=== PATIENT | female | born 1965 | race Two or more races ===

== ENCOUNTER 2020-06-26 10:07 | Outpatient (REF) | payer OTHER, MEDICAID, SELFPAY ==
[2020-06-26 11:49] LABS: MANUAL DIFF FLAG NO
[2020-06-26 12:24] LABS: Eosinophils Absolute Auto 0.1 X10*3/uL (0.0-0.4); Eosinophils Percent Auto 1.6 % (0-4); Hematocrit 37.3 % (37-47); Hemoglobin 12.3 g/dl (12.0-16.0); Imm Gran Abs Auto 0.01 X10*3/uL (0.00-0.03); Imm Gran Pct Auto 0.3 % (0.0-0.4); Lymphocytes Absolute Auto 2.1 X10*3/uL (1.2-4.9); Lymphocytes Percent Auto 55.2 % (20-40); Mean Corpuscular Hemoglobin 30.3 pg (27.0-33.0); Mean Corpuscular Volume 91.9 fL (80-98); Mean Platelet Volume 9.7 fL (9.4-12.3); Monocytes Absolute Auto 0.2 X10*3/uL (0.1-1.2); Monocytes Percent Auto 5.8 % (2-11); Neutrophils Absolute Auto 1.4 X10*3/uL (2.0-8.3); Neutrophils Percent Auto 36.1 % (45-73); Platelet Count 305 X10*3/uL (160-400); Red Blood Count 4.06 X10*6/uL (4.20-5.50); Red Cell Distribution Width 12.8 % (11.0-16.0); White Blood Count 3.8 X10*3/uL (4.8-10.8)
[2020-06-26 12:33] LABS: Alanine Aminotransferase 18 U/L (0-31); Anion Gap 12 (12-20); Aspartate Amino Transferase 29 U/L (5-31); Blood Urea Nitrogen 9 mg/dL (9-16); Calcium 8.9 mg/dL (8.4-10.2); Carbon Dioxide 27 mmol/L (22-29); Chloride 107 mmol/L (96-108); Cholesterol 215 mg/dL; Estimated Glomerular Filt Rate > 60; Glucose Fasting 78 mg/dL (60-99); HDL Cholesterol 52 mg/dL; LDL Cholesterol Calculated 148 mg/dl; Potassium 4.4 mmol/l (3.3-5.1); Sodium 142 mmol/L (135-145); Triglycerides 78 mg/dL
[2020-06-26 12:56] LABS: Vitamin D 25-OH Total 45.1 ng/mL (>30)
[2020-07-07 18:37] LABS: HPV mRNA E6/E7 rflx Not Detected (Not Detected)
== END 2020-06-26 10:08 | disposition home or self-care (01) ==
LOC: HO.HMGCLDS 10:07
PROVIDERS: PCP Internal Medicine; Visit Provider Internal Medicine
DX: Z00.01 Encounter for general adult medical examination with abnormal findings (principal); I10 Essential (primary) hypertension; D72.819 Decreased white blood cell count, unspecified; Z12.4 Encounter for screening for malignant neoplasm of cervix
CPT/HCPCS: 36415; 80048; 80061; 82306; 84450; 84460; 85025; 87624; 87625; 88142

== ENCOUNTER 2020-09-20 14:05 | Outpatient (REF) | payer OTHER, SELFPAY ==
--- NOTE | ~2020-09-20 | MM_ITS ---
EXAMINATION: MM SCREENING DIGITAL BREAST TOMOSYNTHESIS, BILATERAL CLINICAL INFORMATION: Screening. Asymptomatic. The lifetime risk of breast cancer based on the Tyrer-Cuzick Model is 7.6%. COMPARISON: Mammography: September 15, 2019 and studies dating back to July 23, 2016 TECHNIQUE: Digital breast tomosynthesis is performed in both the craniocaudal and mediolateral oblique views along with computer-aided detection (CAD). Synthesized 2D images are generated from the tomosynthesis. FINDINGS: The breasts are heterogeneously dense, which may obscure small masses (ACR BI-RADS breast composition Category c). There are no significant masses, abnormal calcifications, or other abnormalities. Stable grouping of calcification seen anterior aspect of the left breast. MM/MM tomosynthesis screening BI IMPRESSION: There are no significant changes from prior study. ASSESSMENT: BI-RADS 2: Benign RECOMMENDATION: Routine annual mammography screening. This patient's information was entered into a reminder system with a target due date for their next mammogram.
== END 2020-09-20 14:06 | disposition home or self-care (01) ==
LOC: HO.MAMMO 14:05
PROVIDERS: PCP Internal Medicine; Visit Provider Internal Medicine
DX: Z12.31 Encounter for screening mammogram for malignant neoplasm of breast (principal)
CPT/HCPCS: 77063; 77067

== ENCOUNTER 2020-12-25 11:02 | Outpatient (REF) | payer OTHER, SELFPAY ==
[2020-12-25 14:51] LABS: Alanine Aminotransferase 16 U/L (0-31); Anion Gap 15 (12-20); Aspartate Amino Transferase 24 U/L (5-31); Blood Urea Nitrogen 10 mg/dL (9-16); Carbon Dioxide 23 mmol/L (22-29); Chloride 108 mmol/L (96-108); Cholesterol 191 mg/dL; Estimated Glomerular Filt Rate > 60; Glucose Fasting 76 mg/dL (60-99); HDL Cholesterol 48 mg/dL; LDL Cholesterol Calculated 126 mg/dl; Potassium 4.3 mmol/L (3.3-5.1); Sodium 142 mmol/L (135-145); Triglycerides 88 mg/dL
[2020-12-25 15:08] LABS: Vitamin D 25-OH Total 34.4 ng/mL (>30)
== END 2020-12-25 11:03 | disposition home or self-care (01) ==
LOC: HO.HMGCLDS 11:02
PROVIDERS: PCP Internal Medicine; Visit Provider Internal Medicine
DX: E78.5 Hyperlipidemia, unspecified (principal); I10 Essential (primary) hypertension; Z78.0 Asymptomatic menopausal state
CPT/HCPCS: 36415; 80048; 80061; 82306; 84450; 84460

== ENCOUNTER 2021-09-13 09:41 | Outpatient (REF) | payer OTHER, SELFPAY ==
[2021-09-13 10:16] LABS: COVID-19 Test Negative (Negative); IDNOW Serial# 16C4AD1C
== END 2021-09-13 09:42 | disposition home or self-care (01) ==
LOC: HO.LAB 09:41
PROVIDERS: PCP Internal Medicine; Visit Provider Internal Medicine
DX: Z20.822 Contact with and (suspected) exposure to COVID-19 (principal)
CPT/HCPCS: 87635; C9803

== ENCOUNTER 2021-09-23 11:58 | Outpatient (REF) | payer OTHER, SELFPAY ==
--- NOTE | ~2021-09-23 | MM_ITS ---
EXAMINATION: MM SCREENING DIGITAL BREAST TOMOSYNTHESIS, BILATERAL CLINICAL INFORMATION: Screening. Asymptomatic. The lifetime risk of breast cancer based on the Tyrer-Cuzick Model is 5%. COMPARISON: Mammography: 09/20/2020, 09/15/2019, 11/24/2018, 05/05/2018 TECHNIQUE: Digital breast tomosynthesis is performed in both the craniocaudal and mediolateral oblique views along with computer-aided detection (CAD). Synthesized 2D images are generated from the tomosynthesis. FINDINGS: The breasts are heterogeneously dense, which may obscure small masses (ACR BI-RADS breast composition Category c). Parenchymal pattern is similar to prior studies. There is no developing density or interval mass or architectural abnormality. No abnormal calcifications. There is biopsy clip marker again seen right breast mid upper outer quadrant. Some stable fine circular arranged calcifications are again noted 6:00 retroareolar left breast. The axilla and skin contours are unremarkable. No significant changes. MM/MM tomosynthesis screening BI IMPRESSION: No mammographic evidence of malignancy. ASSESSMENT: BI-RADS 2: Benign RECOMMENDATION: Routine annual mammography screening. This patient's information was entered into a reminder system with a target due date for their next mammogram.
== END 2021-09-23 11:59 | disposition home or self-care (01) ==
LOC: HO.MAMMO 11:58
PROVIDERS: PCP Internal Medicine; Visit Provider Internal Medicine
DX: Z12.31 Encounter for screening mammogram for malignant neoplasm of breast (principal)
CPT/HCPCS: 77063; 77067

== ENCOUNTER 2022-03-03 12:12 | Outpatient (REF) | payer OTHER, SELFPAY ==
[2022-03-03 13:15] LABS: COVID-19 Test Negative (Negative); IDNOW Serial# 55D5AD1C
== END 2022-03-03 12:13 | disposition home or self-care (01) ==
LOC: HO.LAB 12:12
PROVIDERS: Visit Provider Internal Medicine
DX: Z20.822 Contact with and (suspected) exposure to COVID-19 (principal)
CPT/HCPCS: 87635; C9803

== ENCOUNTER 2022-09-25 10:53 | Outpatient (REF) | payer OTHER, SELFPAY ==
--- NOTE | ~2022-09-25 | MM_ITS ---
EXAMINATION: MM SCREENING DIGITAL BREAST TOMOSYNTHESIS, BILATERAL CLINICAL INFORMATION: Screening. Asymptomatic. The lifetime risk of breast cancer based on the Tyrer-Cuzick Model is 4.5%. COMPARISON: Mammography: September 23, 2021 and studies dating back to July 23, 2016 TECHNIQUE: Digital breast tomosynthesis is performed in both the craniocaudal and mediolateral oblique views along with computer-aided detection (CAD). Synthesized 2D images are generated from the tomosynthesis. FINDINGS: The breasts are heterogeneously dense, which may obscure small masses (ACR BI-RADS breast composition Category c). There are no new significant masses, abnormal calcifications, or other abnormalities. MM/MM tomosynthesis screening BI IMPRESSION: No significant changes from prior exam. ASSESSMENT: BI-RADS 1: Negative RECOMMENDATION: Routine annual mammography screening. This patient's information was entered into a reminder system with a target due date for their next mammogram.
== END 2022-09-25 10:54 | disposition home or self-care (01) ==
LOC: HO.MAMMO 10:53
PROVIDERS: PCP Internal Medicine; Visit Provider Internal Medicine
DX: Z12.31 Encounter for screening mammogram for malignant neoplasm of breast (principal)
CPT/HCPCS: 77063; 77067

== ENCOUNTER 2022-12-29 08:14 | Outpatient (REF) | payer OTHER, SELFPAY ==
[2022-12-29 12:14] LABS: Alanine Aminotransferase 22 U/L (0-31); Anion Gap 13 (12-20); Aspartate Amino Transferase 29 U/L (5-31); Blood Urea Nitrogen 10 mg/dL (9-16); Calcium 9.1 mg/dL (8.4-10.2); Carbon Dioxide 28 mmol/L (22-29); Chloride 109 mmol/L (96-108); Cholesterol 197 mg/dL; Estimated Glomerular Filt Rate > 60; Glucose Fasting 92 mg/dL (60-99); HDL Cholesterol 54 mg/dL; LDL Cholesterol Calculated 130 mg/dl; Potassium 4.5 mmol/L (3.3-5.1); Sodium 145 mmol/L (135-145); Triglycerides 69 mg/dL; Vitamin D 25-OH Total 58.4 ng/mL (>30)
== END 2022-12-29 08:15 | disposition home or self-care (01) ==
LOC: HO.HMGCLDS 08:14
PROVIDERS: PCP Internal Medicine; Visit Provider Internal Medicine
DX: Z00.01 Encounter for general adult medical examination with abnormal findings (principal); E78.5 Hyperlipidemia, unspecified; I10 Essential (primary) hypertension
CPT/HCPCS: 36415; 80048; 80061; 82306; 84450; 84460

== ENCOUNTER 2023-08-28 07:56 | Outpatient (AMB) | payer OTHER, SELFPAY ==
--- NOTE | 2023-08-28 08:00 | A.OFFPC_ITS ---
Vital Signs 08/28/23 08:10 Height 5 ft 7 in Weight 147 lb BMI 23.0 BP 124/74 Blood Pressure Location Rt brachial Position Sitting Pulse 62 Pulse Source Pulse Oximeter Pulse Oximetry (%) 100 Oxygen Delivery Method Room Air Intake Visit Reasons: Annual PE Intake Note: Pt is here today for her PE: Last mammogram 09/25/22, papsmear 07/05/20 and colonoscopy 12/22/17: Pt is havng her papsmear today Allergies apple [APPLE] Allergy (Intermediate, Verified 08/28/23 08:21) RAW - THROAT RESTRICTION pear [PEAR] Allergy (Intermediate, Verified 08/28/23 08:21) RAW - THROAT RESTRICTION milk [MILK] Adverse Reaction (Intermediate, Verified 08/28/23 08:21) COWS MILK - NAUSEA&VOMITTING SEASONAL ALLERGIES Allergy (Mild, Uncoded 08/28/23 08:21) SNEEZING/CONGESTION Medication List - Last Reconciled 08/28/23 by Jodie Howard MD amlodipine 10 mg PO DAILY cholecalciferol (vitamin D3) 50 mcg PO DAILY hydrochlorothiazide 12.5 mg PO DAILY Tobacco use date assessed: 08/28/23 Dental Screening Dental Screen Date: 08/28/23 Did you have a dental visit in the last 12 months?: No Was dental information given to patient?: Yes HPI Annual PE HPI Details 57-year-old lady here today for physical exam. She has hypertension currently on amlodipine 10 mg and 12.5 mg of hydrochlorothiazide daily. Blood pressure is stable controlled on present treatment. She is now due for her cervical cancer screening, last done in 2019. No complaints at present time Up-to-date with her screening mammogram done last year, and up-to-date with her screening colonoscopy, done by Dr. Sinclair in 2017, due again in 2027. p-to-date with her screening mammogram done last year [facility] Medical History (Updated 08/28/23 @ 08:43 by Jodie Howard MD) Dyslipidemia Arthralgia of left hand Leukopenia Seasonal allergies Essential hypertension Surgical History History of colonoscopy Remove/insert IUD History of section Family History Father HTN (hypertension) Mother HTN (hypertension) Maternal Grandfather No problems noted. Maternal Grandmother No problems noted. Paternal Grandfather No problems noted. Paternal Grandmother No problems noted. Brother No problems noted. Brother No problems noted. Sister No problems noted. Son No problems noted. Son No problems noted. Maternal Aunt Breast cancer Social History Housing: House Alcohol intake: never Patient Tobacco Use Status: Never used Tobacco e-Cigarette/Vaping Use: Never Used Current occupational status: employed Cognitive needs: No Hearing needs: No Vision needs: Yes Questionnaire PHQ-9 Over the last 2 weeks, how often have you been bothered by any of the following problems? 1. Little interest or pleasure in doing things: not at all 2. Feeling down, depressed, or hopeless: not at all 3. Trouble falling or staying asleep, or sleeping too much: not at all 4. Feeling tired or having little energy: not at all 5. Poor appetite or overeating: not at all 6. Feeling bad about yourself - or that you are a failure or have let yourself or your family down: not at all 7. Trouble concentrating on things, such as reading the newspaper or watching television: not at all 8. Moving or speaking so slowly that other people could have noticed. Or the opposite - being so fidgety or restless that you have been moving around a lot more than usual: not at all 9. Thoughts that you would be better off or of hurting yourself in some way: not at all Total score: 0 Depression Screening Interpretation: Negative Depression Screening Done: Yes 18763 - PHQ-9 Billing: Yes Source: Developed by Drs. Maximiliano Ken, Shira Garcia, Howard Vernon and colleagues, with an educational rosamaria from [employer]. Thrive Questionnaire Date Thrive assessed: 08/28/23 I am a: Patient What is your living situation today?: I have a steady place to live Within the past 12 months, did the food you bought not last and you didn't have the money to get more?: Never true Within the past 12 months, did you worry whether your food would run out before you got money to buy more?: Never true Do you have trouble paying for medicines?: No Do you have trouble getting transportation to medical appointments?: No Do you have trouble paying your heating and electricity bill?: Yes ([place]) Do you have trouble taking care of your child, family member or friend?: No Do you have trouble with day-to-day activities such as bathing, preparing meals, shopping, managing finances, etc.?: No Are you currently unemployed and looking for a job?: Yes Are you interested in more education?: Yes Please select the resources that you would like help with: Utilities, Job sear ch/training and Education THRIVE Score: 1 AUDIT C Alcohol Use Questionnaire (AUDIT-C) 1. How often do you have a drink containing alcohol?: Monthly or less 2. How many drinks containing alcohol do you have on a typical day when you are drinking?: 1 or 2 3. How often do you have six or more drinks on one occasion?: Never Total Score: 1 LIU-7 AMB Questionnaire LIU-7 Date LIU - 7 assessed: 08/28/23 Feeling nervous, anxious, or on edge: 0 = Not at all Not being able to stop or control worryin = Not at all Worrying too much about different things: 0 = Not at all Trouble relaxin = Not at all Being so restless that it is hard to sit still: 0 = Not at all Becoming easily annoyed or irritable: 0 = Not at all Feeling afraid as if something awful might happen: 0 = Not at all Total LIU-7 score (0-4 normal; 5-9 mild; 10-14 moderate; 15-21 severe): 0 Source: Developed by Drs. Maximiliano Ken, Shira Garcia, Howard Vernon and colleagues, with an educational rosamaria from [employer]. LIU-7 Assessment Billing LIU-7 Assessment Tool: LIU-7 Assessment 40258 Review of Systems Const Denies body aches, Denies fatigue, Denies fever(s), Denies headache(s) and Denies weakness Eyes Details: Up-to-date with eye exam Denies change in vision, Denies eye discharge and Denies itchy eyes ENT Denies dizziness, Denies headache(s), Denies nasal congestion, Denies nasal discharge and Denies sore throat Card Denies chest pain, Denies lightheadedness, Denies palpitations and Denies dyspnea Resp Denies chest congestion, Denies cough, Denies dyspnea and Denies wheezing GI Denies abdominal pain, Denies change in bowel habits and Denies heartburn Details: Denies any incontinence or abnormal vaginal discharge. Denies urinary frequency, Denies difficulty voiding, Denies genital pruritis, D enies hot flashes, Denies dysuria and Denies urinary urgency Musc Denies back pain, Denies joint swelling and Denies limited range of motion Skin/Breast Denies lesions and Denies rash Neuro Denies dizziness, Denies headache(s), Denies memory loss and Denies weakness Psych Denies abnormal sleep pattern, Denies anxiety, Denies change in appetite, Denies depression, Denies anhedonia and Denies memory loss Endo Denies fatigue, Denies polydipsia, Denies polyuria and Denies palpitations Chuck/Lymph Denies easy bruising Aller/Immun Denies itchy eyes, Denies seasonal rhinorrhea and Denies wheezing Physical exam (Primary Care) Vital Signs: Last Vital Signs Pulse 62 08/28/23 08:10 BP 124/74 08/28/23 08:10 Pulse Ox 100 08/28/23 08:10 Oxygen Delivery Method Room Air 08/28/23 08:10 BMI result Body Mass Index 23.0 Tobacco/Smoking Status: Tobacco use Status Tobacco use date assessed 08/28/23 08/28/23 08:01 Patient Tobacco Use Status Never used Tobacco 08/28/23 08:01 e-Cigarette/Vaping Use Never Used 08/28/23 08:01 Depression Screening Interpretation: Negative Thrive Assessment: Date of Thrive Assessment Date Thrive assessed 08/21/22 08/28/23 08:01 Const General: healthy appearing, comfortable and no acute distress Nutritional Appearance: average body habitus and well nourished Orientation/consciousness: patient oriented x3 Limitations: no limitations HENMT Head: Yes normal to inspection and Yes normocephalic Ears: hearing grossly normal bilaterally, external ears normal, TM's normal bilaterally and EAC's normal General nose exam: Normal external nose present and No nasal discharge present Face and sinus: Yes sinuses nontender and Yes face symmetric Mouth: Normal oral and palatal mucosa present, tongue normal, oropharynx normal and moist mucous membranes Throat: Yes posterior oropharynx normal Eyes General: appearance normal, both eyes and all related structures Pupils: Equal, round and reactive pupils present EOM: EOMs intact bilaterally Neck Neck: Yes normal visual inspection, Yes full ROM and Yes no lymphadenopathy Thyroid: Thyroid normal Chest Chest palpation & inspection: normal inspection of the chest Breast/axilla inspection: normal inspection of the breasts Breast/axilla palpation: normal palpation of the breasts Resp Effort & Inspection: normal respiratory effort and able to speak in complete sentences Auscultation: clear to auscultation bilaterally Cardio Rate: regular rate Rhythm: regular rhythm Heart sounds: S1 normal heart sound present and S2 normal heart sound present Peripheral pulses: Peripheral pulses 2+ throughout GI Inspection: Yes normal to inspection Palpation (GI): Soft to palpation, nontender, no guarding and hepatosplenomegaly present Auscultation: normal bowel sounds General: Yes bladder normal to palpation and Yes no CVA tenderness External Female Exam: normal external appearance and normal appearance of the urethra Speculum Exam - Vagina: normal appearance of the vagina, normal palpation and abnormal vaginal discharge (Whitish yellow slightly mucoid vaginal discharge) Speculum Exam - Cervix: normal appearance of the cervix and normal palpation Bimanual exam- vagina & uterus: normal palpation, bladder normal to palpation and normal palpation Bimanual Exam- Adnexa, other: normal adnexae, no masses, normal and No adnexal tenderness Back/Spine/Pelvis Back: no CVA tenderness and No back tenderness Cervical Spine: normal cervical lordosis and cervical ROM normal Thoracic/Lumbar Spine: thoracic and lumbar spine normal to inspection Pelvis: no pain with anterior-posterior compression Skin General skin exam: no rashes or lesions noted Neuro General: patient oriented x3 Cranial nerves: Yes Equal, round and reactive pupils present Cognition (Neuro): normal cognition Extrem General: Yes full ROM, Yes no joint enlargement, Yes no clubbing, cyanosis or edema, Yes no pedal edema and Yes normal gait Psych Appearance: grossly normal Mental Status: mental status grossly normal Speech and movement: Normal speech and movement present Affect: normal affect Thought process: Normal thought process present Thought content: Normal thought content present Assessment and Plan Assessment & Plan (1) Cervical cancer screening: Code(s): Z12.4 - Encounter for screening for malignant neoplasm of cervix Plan: PAP SMEAR DONE (2) Annual visit for general adult medical examination with abnormal findings: Code(s): Z00.01 - Encounter for general adult medical examination with abnormal findings Plan: Will check appropriate labs. Recommended dental visit every 6 months and regular eye exams, at least every 2 years. Take adequate calcium in diet and vitamin-D 3 at 2000 IU per cap once a day, in addition to weight-bearing exercises to help maintain good muscle tone and weight control. Instructed to do self-breast exam, and continue yearly mammogram currently up-to-date. Has had her COVID vaccine but does not want to get a booster, up-to-date with Tdap and shingles vaccination up-to-date with her screening mammogram, done in [address] Sinclair, not due until 2020 (3) Dyslipidemia: Code(s): E78.5 - Hyperlipidemia, unspecified Plan: Fasting lipid panel ordered, continue with regular exercise, and adherence to healthy eating habits (4) Essential hypertension: Code(s): I10 - Essential (primary) hypertension Plan: Blood pressure at goal of less than 130/80. Continue with current medication. Reinforced importance of following a low sodium diet, getting regular exercise, and lowering stress levels. (5) Leukopenia: Code(s): D72.819 - Decreased white blood cell count, unspecified Qualifiers: Leukopenia type: neutropenia Neutropenia type: unspecified Qualified Code(s): D70.9 - Neutropenia, unspecified Plan: History of low white blood cell count in the past, currently asymptomatic will check CBC with differential Orders: Orders 2 Basic Metabolic Panel Fasting Today E78.5 - Hyperlipidemia, unspecified, I10 - Essential (primary) hypertension, Z78.0 - Asymptomatic menopausal state Complete Blood Count Auto Diff Today D72.819 - Decreased white blood cell count, unspecified Pap Smear Today Z00.01 - Encounter for general adult medical examination with abnormal findings, Z12.4 - Encounter for screening for malignant neoplasm of cervix Aspartate Amino Transferase Today E78.5 - Hyperlipidemia, unspecified, I10 - Essential (primary) hypertension, Z78.0 - Asymptomatic menopausal state Alanine Aminotransferase Today E78.5 - Hyperlipidemia, unspecified, I10 - Essential (primary) hypertension, Z78.0 - Asymptomatic menopausal state Lipid Panel Today E78.5 - Hyperlipidemia, unspecified, I10 - Essential (primary) hypertension, Z78.0 - Asymptomatic menopausal state Vitamin D 25-OH Total Today E78.5 - Hyperlipidemia, unspecified, I10 - Essential (primary) hypertension, Z78.0 - Asymptomatic menopausal state Medications: New cholecalciferol (vitamin D3) 50 mcg PO DAILY 90 caps 3RF Refilled hydrochlorothiazide 12.5 mg PO DAILY 90 caps 3RF I10 - Essential (primary) hypertension amlodipine 10 mg PO DAILY 90 tabs 3RF I10 - Essential (primary) hypertension Coding Level of Care Code Est Pt Prev Care 40-64y([id number]) Diagnoses Cervical cancer screening Z12.4 Annual visit for general adult medical examination with abnormal findings Z00.01 Dyslipidemia E78.5 Essential hypertension I10 Neutropenia, unspecified type D70.9 Leukopenia type: neutropenia Neutropenia type: unspecified Additional Codes LIU-7 Assessment Billing - LIU-7 Assessment Tool: LIU-7 Assessment 02704 ([id number])
[2023-08-28 08:10] VITALS: BP 124/74; PULSE 62; O2SAT 100; BMI 23.0
== END 2023-08-28 08:43 | disposition home or self-care (01) ==
PROVIDERS: Visit Provider Internal Medicine
DX: Z00.00 Encounter for general adult medical examination without abnormal findings (principal); D70.9 Neutropenia, unspecified; E78.5 Hyperlipidemia, unspecified; I10 Essential (primary) hypertension
CPT/HCPCS: 99396

== ENCOUNTER 2023-08-28 08:42 | Outpatient (REF) | payer OTHER, SELFPAY ==
[2023-08-28 11:45] LABS: MANUAL DIFF FLAG NO
[2023-08-28 11:56] LABS: Hematocrit 39.5 % (37.0-47.0); Hemoglobin 13.4 g/dl (12.0-16.0); Imm Gran Pct Auto 0.3 % (0.0-0.4); Mean Corpuscular HGB Conc 33.9 g/dl (31.0-35.0); Mean Corpuscular Hemoglobin 31.2 pg (27.0-33.0); Mean Corpuscular Volume 92.1 fL (80.0-98.0); Mean Platelet Volume 11.6 fL (9.4-12.3); Neutrophils Percent Auto 46.6 % (45-73); Platelet Count 230 X10*3/uL (160-400); Red Blood Count 4.29 X10*6/uL (4.20-5.50); Red Cell Distribution Width 12.6 % (11.0-16.0); White Blood Count 3.3 X10*3/uL (4.8-10.8)
[2023-08-28 11:57] LABS: Basophils Percent Auto 1.2 % (0-2); Eosinophils Absolute Auto 0.1 X10*3/uL (0.0-0.4); Eosinophils Percent Auto 1.5 % (0-4); Imm Gran Abs Auto 0.01 X10*3/uL (0.00-0.03); Lymphocytes Absolute Auto 1.5 X10*3/uL (1.2-4.9); Lymphocytes Percent Auto 45.3 % (20-40); Monocytes Absolute Auto 0.2 X10*3/uL (0.1-1.2); Monocytes Percent Auto 5.1 % (2-11); Neutrophils Absolute Auto 1.6 x10*3/uL (2.0-8.3)
[2023-08-28 12:17] LABS: Alanine Aminotransferase 21 U/L (0-31); Anion Gap 11 (12-20); Aspartate Amino Transferase 34 U/L (5-31); Blood Urea Nitrogen 12 mg/dL (9-16); Calcium 9.3 mg/dL (8.4-10.2); Carbon Dioxide 28 mmol/L (22-29); Chloride 107 mmol/L (96-108); Cholesterol 205 mg/dL (<200); Estimated Glomerular Filt Rate 57; Glucose Fasting 87 mg/dL (60-99); HDL Cholesterol 52 mg/dL (>40); LDL Cholesterol Calculated 139 mg/dL (<100); Potassium 3.8 mmol/L (3.3-5.1); Sodium 142 mmol/L (135-145); Triglycerides 70 mg/dL (<150)
[2023-08-28 12:35] LABS: Vitamin D 25-OH Total 65.2 ng/mL (>30)
== END 2023-08-28 08:43 | disposition home or self-care (01) ==
LOC: HO.HMGCLDS 08:42
PROVIDERS: PCP Internal Medicine; Visit Provider Internal Medicine
DX: E78.5 Hyperlipidemia, unspecified (principal); I10 Essential (primary) hypertension; Z78.0 Asymptomatic menopausal state; D72.819 Decreased white blood cell count, unspecified
CPT/HCPCS: 36415; 80048; 80061; 82306; 84450; 84460; 85025

== ENCOUNTER 2023-08-28 09:20 | Outpatient (REF) | payer OTHER, SELFPAY ==
[2023-09-03 04:23] LABS: HPV mRNA E6/E7 rflx Not Detected (Not Detected)
== END 2023-08-28 09:21 | disposition home or self-care (01) ==
LOC: HO.LAB 09:20
PROVIDERS: Visit Provider Internal Medicine
DX: Z12.4 Encounter for screening for malignant neoplasm of cervix (principal); Z78.0 Asymptomatic menopausal state
CPT/HCPCS: 87624; 88142

== ENCOUNTER 2023-11-13 07:50 | Outpatient (REF) | payer OTHER, SELFPAY ==
--- NOTE | ~2023-11-13 | MM_ITS ---
EXAMINATION: MM SCREENING DIGITAL BREAST TOMOSYNTHESIS, BILATERAL CLINICAL INFORMATION: Screening. Asymptomatic. COMPARISON: Mammography: This study is compared with prior exams dating back to 2019. TECHNIQUE: Digital breast tomosynthesis is performed in both the craniocaudal and mediolateral oblique views along with computer-aided detection (CAD). Synthesized 2D images are generated from the tomosynthesis. FINDINGS: There are scattered areas of fibroglandular density (ACR BI-RADS breast composition Category b). There are no significant masses, abnormal calcifications, or other abnormalities. There is a tissue marker in the right breast from prior benign percutaneous biopsy. There are a few, benign calcifications in each breast. MM/MM tomosynthesis screening BI IMPRESSION: No mammographic evidence of malignancy. ASSESSMENT: BI-RADS BI-RADS 2 - Benign Findings RECOMMENDATION: Routine annual mammography screening. 1 year F/U This examination should not preclude the clinical evaluation of a suspicious palpable abnormality. This patient's information was entered into a reminder system with a target due date for their next mammogram.
== END 2023-11-13 07:51 | disposition home or self-care (01) ==
LOC: HO.MAMMO 07:50
PROVIDERS: PCP Internal Medicine; Visit Provider Internal Medicine
DX: Z12.31 Encounter for screening mammogram for malignant neoplasm of breast (principal)
CPT/HCPCS: 77063; 77067

== ENCOUNTER → 2023-11-13 08:15 | Outpatient (BNV) | payer OTHER, SELFPAY | PROVIDERS: PCP Internal Medicine; Visit Provider Radiology Diagnostic Radiology | DX: Z12.31 Encounter for screening mammogram for malignant neoplasm of breast (principal) | CPT/HCPCS: 77063; 77067 ==

== ENCOUNTER 2024-10-03 09:39 | Outpatient (AMB) | payer OTHER, SELFPAY ==
--- NOTE | 2024-10-03 09:43 | A.OFFPC_ITS ---
Vital Signs 10/03/24 10:06 Height 5 ft 7 in Weight 149 lb BMI 23.3 BP 130/82 Blood Pressure Location Lt brachial Position Sitting Respiration 16 Pulse 69 Pulse Source Pulse Oximeter Temp 98.0 F Temp Source Oral Pulse Oximetry (%) 100 Oxygen Delivery Method Room Air Intake Visit Reasons: PE Intake Note: Pt is here today for her PE: last mammogram 11/13/23, papsmear 09/01/23, colonoscopy 12/22/17 Allergies apple [APPLE] Allergy (Intermediate, Verified 10/03/24 10:14) RAW - THROAT RESTRICTION pear [PEAR] Allergy (Intermediate, Verified 10/03/24 10:14) RAW - THROAT RESTRICTION milk [MILK] Adverse Reaction (Intermediate, Verified 10/03/24 10:14) COWS MILK - NAUSEA&VOMITTING SEASONAL ALLERGIES Allergy (Mild, Uncoded 10/03/24 10:14) SNEEZING/CONGESTION Medication List - Last Reconciled 10/03/24 by Jodie Howard MD amlodipine 10 mg PO DAILY cholecalciferol (vitamin D3) 50 mcg PO DAILY hydrochlorothiazide 12.5 mg PO DAILY Tobacco use date assessed: 10/03/24 Dental Screening Dental Screen Date: 10/03/24 Did you have a dental visit in the last 12 months?: Yes Did you have a dental problem in the last 6 months where you did not have access to dental care?: No Was dental information given to patient?: Patient has dentist HPI PE HPI Details 50-year-old lady with history of hyperte nsion, dyslipidemia, seasonal allergies, here today for physical exam. She is up-to-date with her screening mammogram, last done 11/13/23 benign findings, last cervical screening was done 09/01/23 with benign findings , and last colonoscopy 12/22/[address] Sinclair only showed presence of hyperplastic polyp, repeat due again in 2019. [facility] Medical History Dyslipidemia Arthralgia of left hand Leukopenia Seasonal allergies Essential hypertension Surgical History History of colonoscopy Remove/insert IUD History of section Family History Father HTN (hypertension) Mother HTN (hypertension) Maternal Grandfather No problems noted. Maternal Grandmother No problems noted. Paternal Grandfather No problems noted. Paternal Grandmother No problems noted. Brother No problems noted. Brother No problems noted. Sister No problems noted. Son No problems noted. Son No problems noted. Maternal Aunt Breast cancer Social History Housing: House Alcohol intake: never Patient Tobacco Use Status: Never used Tobacco e-Cigarette/Vaping Use: Never Used Current occupational status: employed Cognitive needs: No Hearing needs: No Vision needs: Yes Female Reproductive History Menstrual Menopause type: natural Date of last pap smear: 09/01/23 Date of Mammogram: 11/13/23 Questionnaire PHQ-9 Over the last 2 weeks, how often have you been bothered by any of the following problems? 1. Little interest or pleasure in doing things: not at all 2. Feeling down, depressed, or hopeless: not at all 3. Trouble falling or staying asleep, or sleeping too much: not at all 4. Feeling tired or having little energy: not at all 5. Poor appetite or overeating: not at all 6. Feeling bad about yourself - or that you are a failure or have let yourself or your family down: not at all 7. Trouble concentrating on things, such as reading the newspaper or watching television: not at all 8. Moving or speaking so slowly that other people could have noticed. Or the opposite - being so fidgety or restless that you have been moving around a lot more than usual: not at all 9. Thoughts that you would be better off or of hurting yourself in some way: not at all Total score: 0 Depression Screening Interpretation: Negative Depression Screening Done: Yes 63550 - PHQ-9 Billing: Yes Source: Developed by Drs. Maximiliano Ken, Shira Garcia, Howard Vernon and colleagues, with an educational rosamaria from [employer]. Thrive Questionnaire Date Thrive assessed: 10/03/24 I am a: Patient What is your living situation today?: I have a steady place to live Within the past 12 months, did the food you bought not last and you didn't have the money to get more?: Never true Within the past 12 months, did you worry whether your food would run out before you got money to buy more?: Never true Do you have trouble paying for medicines?: No Do you have trouble getting transportation to medical appointments?: No Do you have trouble paying your heating and electricity bill?: No Do you have trouble taking care of your child, family member or friend?: No Do you have trouble with day-to-day activities such as bathing, preparing meals, shopping, managing finances, etc.?: No Are you currently unemployed and looking for a job?: No Are you interested in more education?: No THRIVE Score: 0 AUDIT C Alcohol Use Questionnaire (AUDIT-C) 1. How often do you have a drink containing alcohol?: Never Total Score: 0 LIU-7 AMB Questionnaire LIU-7 Date LIU - 7 assessed: 10/03/24 Feeling nervous, anxious, or on edge: 0 = Not at all Not being able to stop or control worryin = Not at all Worrying too much about different things: 0 = Not at all Trouble relaxin = Not at all Being so restless that it is hard to sit still: 0 = Not at all Becoming easily annoyed or irritable: 0 = Not at all Feeling afraid as if something awful might happen: 0 = Not at all Total LIU-7 score (0-4 normal; 5-9 mild; 10-14 moderate; 15-21 severe): 0 Source: Developed by Drs. Maximiliano Ken, Shira Garcia, Howard Vernon and colleagues, with an educational rosamaria from [employer]. LIU-7 Assessment Billing LIU-7 Assessment Tool: LIU-7 Assessment 14792 Review of Systems Const Denies body aches, Reports difficulty sleeping (Occasional difficulty initiating and maintaining sleep), Denies fatigue, Denies fever(s), Denies headache(s), Denies lethargy, Denies poor appetite, Denies snoring, Denies stops breathing during sleep and Denies weakness Eyes Details: Up-to-date with eye exam Denies change in vision, Denies eye discharge and Denies itchy eyes ENT Denies dizziness, Denies headache(s), Denies nasal congestion, Denies nasal discharge and Denies sore throat Card Denies chest pain, Denies lightheadedness, Denies palpitations and Denies dyspnea Resp Denies chest congestion, Denies cough, Denies dyspnea, Denies snoring and Denies wheezing GI Denies abdominal pain, Denies change in bowel habits and Denies heartburn Details: Denies any incontinence or abnormal vaginal discharge. Denies urinary frequency, Denies difficulty voiding, Denies genital pruritis, Denies hot flashes, Denies dysuria and Denies urinary urgency Musc Denies back pain, Denies joint swelling and Denies limited range of motion Skin/Breast Denies lesions and Denies rash Neuro Denies dizziness, Denies headache(s), Denies memory loss and Denies weakness Psych Denies abnormal sleep pattern, Denies anxiety, Denies change in appetite, Denies depression, Denies anhedonia and Denies memory loss Endo Denies fatigue, Denies polydipsia, Denies polyuria and Denies palpitations Chuck/Lymph Denies easy bruising Aller/Immun Denies itchy eyes, Denies seasonal rhinorrhea and Denies wheezing Physical exam (Primary Care) Vital Signs: Last Vital Signs Temp 98.0 F 10/03/24 10:06 Pulse 69 10/03/24 10:06 Resp 16 10/03/24 10:06 BP 130/82 10/03/24 10:06 Pulse Ox 100 10/03/24 10:06 Oxygen Delivery Method Room Air 10/03/24 10:06 BMI result Body Mass Index 23.3 Tobacco/Smoking Status: Tobacco use Status Tobacco use date assessed 10/03/24 10/03/24 09:44 Patient Tobacco Use Status Never used Tobacco 10/03/24 09:44 e-Cigarette/Vaping Use Never Used 10/03/24 09:44 PHQ-9: PHQ-9 Score PHQ-9: Total score 0 10/03/24 10:15 Depression Screening Interpretation: Negative Thrive Assessment: Date of Thrive Assessment Date Thrive assessed 10/03/24 10/03/24 10:09 Advance Care Planning discussion: Completed/Scanned Date of discussion: 10/03/24 Who was present: patient Forms completed: Health Care Proxy Time spent: 16-45 minutes Actual minutes spent: 3 Const General: no acute distress Nutritional Appearance: average body habitus and well nourished Orientation/consciousness: patient oriented x3 HENMT Head: Yes normal to inspection and Yes normocephalic Ears: hearing grossly normal bilaterally, external ears normal, TM's normal bilaterally and EAC's normal General nose exam: Normal external nose present and No nasal discharge present Face and sinus: Yes face symmetric Mouth: Normal oral and palatal mucosa present, tongue normal, oropharynx normal and moist mucous membranes Eyes General: appearance normal, both eyes and all related structures Pupils: Equal, round and reactive pupils present EOM: EOMs intact bilaterally Neck Neck: Yes normal visual inspection, Yes full ROM and Yes no lymphadenopathy Thyroid: Thyroid normal Chest Chest palpation & inspection: normal inspection of the chest Breast/axilla inspection: normal inspection of the breasts Breast/axilla palpation: normal palpation of the breasts Resp Effort & Inspection: normal respiratory effort and able to speak in complete sentences Auscultation: clear to auscultation bilaterally Cardio Rate: regular rate Rhythm: regular rhythm Heart sounds: S1 normal heart sound present and S2 normal heart sound present Peripheral pulses: Peripheral pulses 2+ throughout GI Inspection: Yes normal to inspection Palpation (GI): Soft to palpation, nontender, no guarding and hepatosplenomegaly present Auscultation: normal bowel sounds Back/Spine/Pelvis Back: No back tenderness Cervical Spine: normal cervical lordosis and cervical ROM normal Thoracic/Lumbar Spine: thoracic and lumbar spine normal to inspection Skin General skin exam: no rashes or lesions noted Neuro General: patient oriented x3 Cranial nerves: Yes Equal, round and reactive pupils present Cognition (Neuro): normal cognition Extrem General: Yes full ROM, Yes no joint enlargement, Yes no clubbing, cyanosis or edema, Yes no pedal edema and Yes normal gait Psych Appearance: grossly normal Mental Status: mental status grossly normal Speech and movement: Normal speech and movement present Affect: normal affect Thought process: Normal thought process present Thought content: Normal thought content present Coding Level of Care Code Est Pt Prev Care 40-64y(63608) Diagnoses Annual visit for general adult medical examination with abnormal findings Z00.01 Essential hypertension I10 Dyslipidemia E78.5 Insomnia, unspecified type G47.00 Insomnia type: unspecified Advanced directives, counseling/discussion Z71.89 Additional Codes PHQ-9 - 08457 - PHQ-9 Billing: Yes ([id number]) Vital Signs *Quality* - Advance Care Planning discussion: Completed/Scanned ([id number]) Vital Signs *Quality* - Time spent: 16-45 minutes ([id number]) LIU-7 Assessment Billing - LIU-7 Assessment Tool: LIU-7 Assessment 73099 ([id number]) Assessment & Plan Assessment & Plan (1) Annual visit for general adult medical examination with abnormal findings: Code(s): Z00.01 - Encounter for general adult medical examination with abnormal findings Plan: Will check appropriate labs. Recommended dental visit every 6 months and regular eye exams, at least every 2 years. Take adequate calcium in diet and vitamin-D 3 at 2000 IU per cap once a day, in addition to weight-bearing exercises to help maintain good muscle tone and weight control. Instructed to do self-breast exam, and continue with yearly mammogram, due again this year up- to-date with her cervical cancer screening and screening colonoscopy. Up-to-date with her vaccines (2) Essential hypertension: Code(s): I10 - Essential (primary) hypertension Category: Medical Plan: Blood pressure at goal of less than 130/80. Fasting basic metabolic panel ordered today. Continue hydrochlorothiazide and amlodipine at the same dose. Reinforced importance of following a low sodium diet, getting regular exercise, and lowering stress levels. (3) Dyslipidemia: Code(s): E78.5 - Hyperlipidemia, unspecified Category: Medical Plan: Fasting lipid panel ordered today. Reinforced importance of following a low- cholesterol diet and getting regular exercise. (4) Insomnia: Code(s): G47.00 - Insomnia, unspecified Qualifiers: Insomnia type: unspecified Qualified Code(s): G47.00 - Insomnia, unspecified Plan: Prescription sent for diazepam 2 mg per tablet to take 1 tablet at bedtime as needed for difficulty with sleeping, counseled not to take it on a regular basis as it can be habit-forming (5) Advanced directives, counseling/discussion: Code(s): Z71.89 - Other specified counseling Plan: Initiated the conversation about Advanced Directives. Advanced Directives help patients prepare for current and future decisions about their medical treatment and place of care. Discussed with patient that it is a process where a patients current condition and prognosis are reviewed, their wishes for information regarding their illness are elicited, and likely medical dilemmas are presented and options discussed. Healthcare proxy form completed today. The form can be amended as needed, reviewed yearly and make changes as needed Orders: Orders Basic Metabolic Panel Fasting 10/03/24 E78.5 - Hyperlipidemia, unspecified, I10 - Essential (primary) hypertension, J30.2 - Other seasonal allergic rhinitis Lipid Panel 10/03/24 E78.5 - Hyperlipidemia, unspecified, I10 - Essential (primary) hypertension, J30.2 - Other seasonal allergic rhinitis Alanine Aminotransferase 10/03/24 E78.5 - Hyperlipidemia, unspecified, I10 - Essential (primary) hypertension, J30.2 - Other seasonal allergic rhinitis Aspartate Amino Transferase 10/03/24 E78.5 - Hyperlipidemia, unspecified, I10 - Essential (primary) hypertension, J30.2 - Other seasonal allergic rhinitis Vitamin D 25-OH Total 10/03/24 E78.5 - Hyperlipidemia, unspecified, I10 - Essential (primary) hypertension, J30.2 - Other seasonal allergic rhinitis Medications: New diazepam 2 mg PO BEDTIME PRN 20 tabs 0RF sleep Refilled amlodipine 10 mg PO DAILY 90 tabs 4RF I10 - Essential (primary) hypertension hydrochlorothiazide 12.5 mg PO DAILY 90 caps 4RF I10 - Essential (primary) hypertension
[2024-10-03 10:06] VITALS: BP 130/82; PULSE 69; RESP 16; TEMP 36.7; O2SAT 100; BMI 23.3
== END 2024-10-03 10:39 | disposition home or self-care (01) ==
PROVIDERS: PCP Internal Medicine; Visit Provider Internal Medicine
DX: Z00.01 Encounter for general adult medical examination with abnormal findings (principal); I10 Essential (primary) hypertension; E78.5 Hyperlipidemia, unspecified; G47.00 Insomnia, unspecified; Z71.89 Other specified counseling; Z00.00 Encounter for general adult medical examination without abnormal findings

== ENCOUNTER → 2024-10-03 09:39 | Outpatient (BNVA) | payer OTHER, SELFPAY | PROVIDERS: PCP Internal Medicine; Visit Provider Internal Medicine | DX: Z00.01 Encounter for general adult medical examination with abnormal findings (principal); I10 Essential (primary) hypertension; E78.5 Hyperlipidemia, unspecified; G47.00 Insomnia, unspecified; Z71.89 Other specified counseling; Z79.899 Other long term (current) drug therapy | CPT/HCPCS: 96127 ==

== ENCOUNTER 2024-11-18 07:57 | Outpatient (REF) | payer OTHER, SELFPAY | END 2024-11-18 07:58 | disposition home or self-care (01) | LOC: HO.MAMMO 07:57 | PROVIDERS: PCP Internal Medicine; Visit Provider Internal Medicine | DX: Z12.31 Encounter for screening mammogram for malignant neoplasm of breast (principal) | CPT/HCPCS: 77063; 77067 ==

== ENCOUNTER → 2024-11-18 08:15 | Outpatient (BNV) | payer OTHER, SELFPAY | PROVIDERS: PCP Internal Medicine; Visit Provider Internal Medicine | DX: Z12.31 Encounter for screening mammogram for malignant neoplasm of breast (principal) | CPT/HCPCS: 77063; 77067 ==

== ENCOUNTER 2025-01-13 10:41 | Outpatient (AMB) | payer OTHER, SELFPAY ==
--- NOTE | 2025-01-13 10:49 | AM.OFFVISNUR ---
Intake Visit Reasons: Tdap Intake Note: Pt is here today for a up to date Tdap Allergies apple (APPLE) Allergy (Intermediate, Verified 10/03/24 10:14) RAW - THROAT RESTRICTION pear (PEAR) Allergy (Intermediate, Verified 10/03/24 10:14) RAW - THROAT RESTRICTION milk (MILK) Adverse Reaction (Intermediate, Verified 10/03/24 10:14) COWS MILK - NAUSEA&VOMITTING SEASONAL ALLERGIES Allergy (Mild, Uncoded 10/03/24 10:14) SNEEZING/CONGESTION Immunizations Boostrix Tdap 2.5 Lf unit-8 mcg-5 Lf/0.5 mL intramuscular syringe Performing Provider: Jodie Howard MD Performing Location: [facility] [place] Adult [facility] Administered by: Claudia Wing CMA on 01/13/25 11:04 Dose Route Admin Location Dispensed Lot Number Expiration Date NDC Occasional Babysitter 0.5 mL IM Right Deltoid 0.5 mL [id number] 03/25/27 02551-371-45 [employer] Total Dispensed Waste 0.5 mL 0 % VIS Given Date VIS Provided VIS Publication Date 01/13/25 Single Vaccine 21 Eligibility Eligibility Date Funding Source Not [facility] Eligible 01/13/25 Private Assessment & Plan Assessment & Plan Orders: Orders TDaP Immunization Today Z23 - Encounter for immunization Coding
== END 2025-01-13 11:07 | disposition home or self-care (01) ==
LOC: HO.HMCC 10:41
PROVIDERS: PCP Internal Medicine; Visit Provider Internal Medicine
DX: Z23 Encounter for immunization (principal)

== ENCOUNTER → 2025-01-13 10:41 | Outpatient (BNVA) | payer OTHER, SELFPAY | PROVIDERS: PCP Internal Medicine; Visit Provider Internal Medicine | DX: Z23 Encounter for immunization (principal) | CPT/HCPCS: 90471; 90715 ==

== ENCOUNTER 2025-03-14 09:25 | Outpatient (AMB) | payer OTHER, SELFPAY ==
[2025-03-14 09:36] VITALS: BP 158/90; PULSE 61; RESP 16; TEMP 36.8; O2SAT 100; BMI 23.3
--- NOTE | 2025-03-14 09:36 | MHC.PC.OV ---
Vital Signs 03/14/25 09:36 03/14/25 09:45 Height 5 ft 7 in Weight 149 lb BMI 23.3 BP 158/90 H 135/90 H Blood Pressure Location Rt brachial Rt brachial Position Sitting Sitting Respiration 16 Pulse 61 Pulse Source Pulse Oximeter Temp 98.3 F Temp Source Oral Pulse Oximetry (%) 100 Oxygen Delivery Method Room Air Intake Visit Reasons: F/U depression symptoms Intake Note: Pt is here today c/o depression Allergies apple (APPLE) Allergy (Intermediate, Verified 03/14/25 09:57) RAW - THROAT RESTRICTION pear (PEAR) Allergy (Intermediate, Verified 03/14/25 09:57) RAW - THROAT RESTRICTION milk (MILK) Adverse Reaction (Intermediate, Verified 03/14/25 09:57) COWS MILK - NAUSEA&VOMITTING SEASONAL ALLERGIES Allergy (Mild, Uncoded 03/14/25 09:57) SNEEZING/CONGESTION Medication List - Last Reconciled 03/14/25 by Jodie Howard MD amlodipine 10 mg PO DAILY cholecalciferol (vitamin D3) 50 mcg PO DAILY diazepam 2 mg PO BEDTIME PRN hydrochlorothiazide 12.5 mg PO DAILY Tobacco use date assessed: 03/14/25 Dental Screening Dental Screen Date: 03/14/25 Did you have a dental visit in the last 12 months?: No Did you have a dental problem in the last 6 months where you did not have access to dental care?: No Was dental information given to patient?: Patient declined HPI F/U depression symptoms HPI Details - The patient is a 59-year-old female presenting with anxiety and depression related to work stress. 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 - The patient feels overworked and underappreciated, citing instances of public shaming and excessive workload without recognition. 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 - The patient reports a lack of clear job responsibilities and feels overwhelmed by the demands placed on her. - Her medical history includes hypertension, asthma, obesity, and hearing loss with a cochlear implant. [facility] Medical History (Updated 03/24/25 @ 23:59 by Jodie Howard MD) Anxiety and depression Dyslipidemia Arthralgia of left hand Leukopenia Seasonal allergies Essential hypertension Surgical History History of colonoscopy Remove/insert IUD History of section Family History Father HTN (hypertension) Mother HTN (hypertension) Maternal Grandfather No problems noted. Maternal Grandmother No problems noted. Paternal Grandfather No problems noted. Paternal Grandmother No problems noted. Brother No problems noted. Brother No problems noted. Sister No problems noted. Son No problems noted. Son No problems noted. Maternal Aunt Breast cancer Social History Housing: House Alcohol intake: never Patient Tobacco Use Status: Never used Tobacco e-Cigarette/Vaping Use: Never Used Current occupational status: employed Cognitive needs: No Hearing needs: No Vision needs: Yes Questionnaire PHQ-9 Over the last 2 weeks, how often have you been bothered by any of the following problems? 1. Little interest or pleasure in doing things: several days 2. Feeling down, depressed, or hopeless: several days 3. Trouble falling or staying asleep, or sleeping too much: several days 4. Feeling tired or having little energy: several days 5. Poor appetite or overeating: several days 6. Feeling bad about yourself - or that you are a failure or have let yourself or your family down: several days 7. Trouble concentrating on things, such as reading the newspaper or watching television: several days 8. Moving or speaking so slowly that other people could have noticed. Or the opposite - being so fidgety or restless that you have been moving around a lot more than usual: not at all 9. Thoughts that you would be better off or of hurting yourself in some way: not at all Total score: 7 Depression Screening Interpretation: Positive (Does not want to start on any medication at present time, requesting therapy) Depression Screening Follow-up: Community Mental Health Worker F/U Depression Screening Done: Yes 72172 - PHQ-9 Billing: Yes Source: Developed by Drs. Maximiliano Ken, Shira Garcia, Howard Vernon and colleagues, with an educational rosamaria from [employer]. Thrive Questionnaire Date Thrive assessed: 10/03/24 LIU-7 AMB Questionnaire LIU-7 Date LIU - 7 assessed: 03/14/25 Feeling nervous, anxious, or on edge: 1 = Several days Not being able to stop or control worryin = Nearly every day Worrying too much about different things: 2 = More than half the days Trouble relaxin = Several days Being so restless that it is hard to sit still: 2 = More than half the days Becoming easily annoyed or irritable: 1 = Several days Feeling afraid as if something awful might happen: 2 = More than half the days Total LIU-7 score (0-4 normal; 5-9 mild; 10-14 moderate; 15-21 severe): 12 Source: Developed by Drs. Maximiliano Ken, Shira Garcia, Howard Vernon and colleagues, with an educational rosamaria from [employer]. LIU-7 Assessment Billing LIU-7 Assessment Tool: LIU-7 Assessment 39125 Review of Systems Const All systems reviewed & are unremarkable except as noted in HPI and below Physical exam (Primary Care) Vital Signs: Last Vital Signs Temp 98.3 F 03/14/25 09:36 Pulse 61 03/14/25 09:36 Resp 16 03/14/25 09:36 BP 158/90 H 03/14/25 09:36 Pulse Ox 100 03/14/25 09:36 Oxygen Delivery Method Room Air 03/14/25 09:36 BMI result Body Mass Index 23.3 Tobacco/Smoking Status: Tobacco use Status Tobacco use date assessed 03/14/25 03/14/25 09:38 Patient Tobacco Use Status Never used Tobacco 03/14/25 09:38 e-Cigarette/Vaping Use Never Used 03/14/25 09:38 PHQ-9: PHQ-9 Score PHQ-9: Total score 7 03/14/25 10:24 Depression Screening Interpretation: Positive (Does not want to start on any medication at present time, requesting therapy) Depression Screening Follow-up: Community Mental Health Worker F/U Thrive Assessment: Date of Thrive Assessment Date Thrive assessed 10/03/24 03/14/25 09:38 Const General: no acute distress Nutritional Appearance: average body habitus Orientation/consciousness: patient oriented x3 HENMT Head: Yes normocephalic Ears: external ears normal General nose exam: Normal external nose present Face and sinus: Yes face symmetric Mouth: Normal oral and palatal mucosa present and moist mucous membranes Eyes General: appearance normal, both eyes and all related structures Neck Neck: Yes full ROM and Yes no lymphadenopathy Thyroid: Thyroid normal Resp Effort & Inspection: normal respiratory effort and able to speak in complete sentences Auscultation: clear to auscultation bilaterally Cardio Rate: regular rate Rhythm: regular rhythm Heart sounds: S1 normal heart sound present and S2 normal heart sound present GI Inspection: Yes normal to inspection Palpation (GI): Soft to palpation, nontender and no guarding Auscultation: normal bowel sounds Neuro General: patient oriented x3 Cognition (Neuro): normal cognition Extrem General: Yes full ROM, Yes no pedal edema and Yes normal gait Psych Appearance: grossly normal Mental Status: mental status grossly normal Speech and movement: Normal speech and movement present Affect: normal affect Thought process: Normal thought process present Thought content: Normal thought content present Coding Level of Care Code Est Pt Level 4 (34374) Diagnoses Anxiety and depression F41.9; F32.A Additional Codes LIU-7 Assessment Billing - LIU-7 Assessment Tool: ILU-7 Assessment 47234 ([id number]) PHQ-9 - 22271 - PHQ-9 Billing: Yes ([id number]) Assessment & Plan Assessment & Plan (1) Anxiety and depression: Code(s): F41.9 - Anxiety disorder, unspecified; F32.A - Depression, unspecified Category: Medical Plan: The patient is experiencing significant anxiety and depression related to her work environment and relationship with her assistant account executive. She has expressed a desire to pursue therapy rather than starting medication at this time. A referral to a mental health coordinator, Dee Nolan, has been made to facilitate access to therapy services. The patient is advised to maintain her current employment while seeking alternative job opportunities, with the understanding that her current role is contributing to her mental health concerns. She is encouraged to continue engaging in physical activities and self-care routines to help manage her stress levels. Patient was informed and verbally consented to the use of an ambient scribe for clinic note documentation during this visit.
[2025-03-14 09:45] VITALS: BP 135/90
--- OUTSIDE RECORDS SUMMARY | 2025-03-14 10:29 | XMS_ITS | Clinical Summary ---
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 Active amlodipine besylate (AMLODIPINE ORAL) Take 10 mg by mouth. Active hydroCHLOROthia zide (MICROZIDE) 12.5 mg capsule Take 12.5 mg by mouth daily. Active Active Problems Problem Noted Date Diagnosed Date Encounter for annual routine [facility] 01/31/2019 Assessment & Plan (01/31/2019 2:41 PM EDT): Due for next pap smear in 2022 Encounter for IUD removal 01/31/2019 Overview (01/31/2019): Mirena inserted in Jun 2012 Assessment & Plan (01/31/2019 2:41 PM EDT): Patient requested removal of Mirena today. Mirena removed in office today. We discussed calling the office if she has a menstrual period, due to a 12 year history of amenorrhea and uncertain dates of menopause Immunizations Immunization Administration Dates Next Due Influenza Quadrivalent w/ Preservative IM 2017,05/27/2017 Family History Medical History Relation Comments Hypertension Father Diabetes Mother Hypertension Mother Hypertension Sibling Relation Status Comments Father (Age 42) Maternal Grandfather Maternal Grandmother Mother Alive Paternal Grandfather Paternal Grandmother Sibling Social History Tobacco Use Types Packs/Day Years Used Date Smoking Tobacco: Never Smokeless Tobacco: Never Alcohol Use Standard Drinks/Week Comments Yes 0 (1 standard drink = 0.6 oz pur e alcohol) socially Education Answer Date Recorded Are you interested in more education? Not on mando e 11/21/2022 Are you concerned about learning? Not on file 11/21/2022 No 11/21/2022 No 11/21/2022 Digital Access Answer Date Recorded No 12/20/2022 No 12/20/2022 No 12/20/2022 Reliable internet access at home? Not on file 12/20/2022 Device with a working camera? 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 Not on file Not on file Not on file Last Filed Vital Signs Vital Sign Reading Time Taken Comments Blood Pressure 130/74 01/31/2019 1:53 PM EDT Pulse - - Temperature - - Respiratory Rate - - Oxygen Saturation - - Inhaled Oxygen Concentration - - Weight 63.7 kg (140 lb 6.4 oz) 01/31/2019 1:53 P M EDT Height 160 cm (5' 3 ) 01/31/2019 1:53 PM EDT Body Mass Index 24.87 01/31/2019 1:53 PM EDT Plan of Treatment Health Maintenance Due Date Last Done Comments Adult Td,Tdap Booster 1965 LIPID PANEL 1965 POTASSIUM LEVEL 1965 DEPRESSION SCREENING 1977 HEPATITIS C SCREENING 10/22/1983 HIV ONE-TIME SCREENING (18-6 5 YEARS) 10/22/1983 PAP SMEAR 1986 COLOGUARD 2010 COLONOSCOPY 2010 COLORECTAL CANCER SCREENING 2010 FIT TEST 2010 FOBT 2010 SIGMOIDOSCOPY 2010 VIRTUAL COLONOSCOPY 2010 PNEUMOCOCCAL VACCINES (50+ years) (1 of 1 - PCV) 10/22/2015 MAMMOGRAM 07/12/2017 07/12/2015 COVID-19 VACCINE (2 - 2023-2 5 season) 2024 11/07/2020 SMOKING STATUS SCREENING (On ce After 26 Yrs) Completed 01/31/2019 ZOSTER VACCINES Completed 07/10/2020, 01/11/2019, 01/11/2019 HEPATITIS A VACCINES Aged Out No long er eligible based on patient's age to complete this topic HIB VACCINES Aged Out No longer eligi ble based on patient's age to complete this topic MENINGOCOCCAL VACCINES (ACWY) Aged Out No longer eligible based on patient's age to complete this topic MENINGOCOCCAL VACCINES (B) Aged Out N o longer eligible based on patient's age to complete this topic Medical Devices Not on file Procedures Procedure Name Priority Date/Time Associated Diagnosis Comments MAMMOGRAPHY Routine 07/12/2015 from Last 3 Months or Most Recently Relevant to Health Maintenance Results * MAMMOGRAPHY FOR RESULT ENTRY ONLY (07/12/2015) Mammogram normal per records from [facility] Historical Provider MD HEALTH MAINTENANCE Final Result from Last 3 Months or Most Recently Relevant to Health Maintenance [facility] H[facility] Care Teams Tailings Worker Relationship Specialty Start Date End Date Jodie Howard MD [address] [facility] [place] [place] [id number] PCP - General Internal Medicine 01/20/19 Additional Source Comments The information contained in this document represents components of the legal health record. It is not the complete legal health record.[facility]
== END 2025-03-14 10:24 | disposition home or self-care (01) ==
LOC: HO.HMCC 09:26
PROVIDERS: PCP Internal Medicine; Visit Provider Internal Medicine
DX: F41.9 Anxiety disorder, unspecified (principal); F32.A Depression, unspecified

== ENCOUNTER → 2025-03-14 09:25 | Outpatient (BNVA) | payer OTHER, SELFPAY | PROVIDERS: PCP Internal Medicine; Visit Provider Internal Medicine | DX: F41.9 Anxiety disorder, unspecified (principal); F32.A Depression, unspecified; Z56.3 Stressful work schedule | CPT/HCPCS: 96127 ==